=== PATIENT | female | born 1990 | race Caucasian/White ===

== ENCOUNTER 2020-04-12 08:41 | Emergency (ER) | payer BC, SELFPAY ==
--- NOTE | 2020-04-12 08:42 | ED.GENADUL_ITS ---
Discharge Plan Disposition Patient Disposition: HOME Condition: Good Discharge Details Chief Complaint: Orthopedic Clinical Impression: Finger fracture, left Primary Care Provider: Isela Moon ED Provider: Dilcia Escobedo Home Meds and New Rx's Prescriptions: Continued Bcp RF: 0 Discharge Instructions Instructions: Finger Fracture (ED) Additional Instructions: Encourage rest, ice, elevation. Tylenol and ibuprofen as needed for discomfort. Please continue with splint until evaluated by orthopedics. Avoid moving finger. Please call orthopedics Tuesday morning, number listed below to schedule follow- up appointment. If you develop any new or worsening symptoms please seek care urgently once again. Referrals: Tristan Jo MD [ [facility] STAFF PHYSICIAN] - Discharge Data Discharge Date/Time-TO BE ENTERED AT DEPARTURE: 04/12/20 10:49 Medical Decision Making Patient is a pleasant [id number] 29-year-old female presenting today with chief complaint of injury to left ring finger. She reports a prior to arrival she had been trying to walk her dog on a leash when the dog took off and the rings section of the leash caught on her afflicted finger. States she does have some tingling in the finger. She denies other injury the time of the incident. Had notable deformity to the digit. On exam, patient appears uncomfortable. She has an internally rotated and medially deviated left ring finger. Capillary refill is intact as is two-point discrimination. Patient is unable to move the digit. Exam is most concerning for fracture over the middle phalanx. Plan for x-ray. I did discuss digital block with the patient and she declines. Would rather to stick with oral regimen will give Tylenol and ibuprofen to help with discomfort. Patient reports she is on oral contraceptive and has not been sexually active in quite some time. X-ray reviewed by myself. Concerning for a spiral displaced fracture of the left middle phalanx. XR reviewed by radiologist: FINDINGS: Bones/joints: Displaced spiral oblique fracture in the middle phalanx of the ring finger. Soft tissues: Soft tissue swelling of the finger IMPRESSION: Displaced spiral oblique fracture in the middle phalanx of the ring finger. Consulted with Dr. Jo. He will look at the xray and call back. Dr. Jo reviewed the xray . Advised attempted reduction with fede taping and splint. He advised f/u this week with ortho. I discussed with/benefits as well as expected procedural steps of digital block followed by reduction. Patient is very anxious and is requesting an anxiolytic prior to procedure. We will give p.o. Ativan and reported digital block followed by reduction as discussed. Patient voiced understanding and wishes to proceed. Please see procedure note. She tolerated this well. Digital block sufficiently anesthetized the digit digit. Rotational deformity was corrected. I taped the middle digit and repeat imaging obtained Reviewed the images and the rotation does appear improved at the digits and lateral length. Prior to putting the patient in the foam metal splint on top of the fede taping, I did attempt upon this at length benefit further and then reinforced this with the splinting. X-ray reviewed by radiologist: FINDINGS: Bones/joints: Improved alignment of the spiral fracture in the middle phalanx of the ring finger. Soft tissues: Soft tissue swelling of the finger IMPRESSION: Improved alignment of the spiral fracture in the middle phalanx of the ring finger. Encourage rest, ice, elevation. We discussed care of the fracture at length. She will remain in the splint evaluated by orthopedics. She will call orthopedics on Tuesday to schedule follow-up appointment. She will return with new or worsening symptoms. Will use Tylenol and/or ibuprofen as needed for discomfort. All of her questions and concerns were addressed and she is in a greement this plan. HPI General Mode of arrival: ambulatory . Date/Time Provider Initiated Documentation: 04/12/20 08:42 . Limitations to Documentation: no limitations . Information obtained by: patient and RN notes reviewed . History of Present Illness 29 year old F presents to the emergency department with the chief complaint of left ring finger pain, described as severe, with intensity rated at 8. Quality is described as sharp, and is localized to the left and upper extremity. Patient reports no radiation. Patient started experiencing this minute(s) and it has been constant. Immobilization improves symptom(s), Movement worsens symptoms . Patient notes no other symptoms.. Patient did receive the following treatments prior to arrival, none Related Data Home Medications Medication Instructions Recorded Confirmed Bcp 04/12/20 Allergies Allergy/AdvReac Type Severity Reaction Status Date / Time No Known Allergies Allergy Unverified 04/12/20 08:45 Review of Systems Constitutional Constitutional: Reports as per HPI, Denies chills, Denies fever(s), Denies headache(s) and Denies weakness ENT Ears, Nose, Mouth, and Throat: Denies headache(s) Cardiovascular Cardiovascular: Reports as per HPI Respiratory Respiratory: Reports as per HPI and Denies cough Musculoskeletal Musculoskeletal: Reports as per HPI and Reports tingling Integumentary/Breasts Skin/Breast: Reports as per HPI, Denies rash and Denies wounds Neurologic Neurologic: Reports as per HPI, Denies headache(s), Reports tingling, Denies paresthesias and Denies weakness [facility] Social History Smoking/Tobacco Use Status: Never Alcohol Intake: current Alcohol Intake frequency: 0-2 drinks per day Drug use: Never Substance use type: does not use Do you feel safe at home: Yes Do you feel safe in your relationship?: Yes Exam Const General: cooperative, healthy appearing, comfortable, no acute distress, well developed and well groomed Nutritional Appearance: average body habitus and well nourished Orientation: alert and awake Resp Effort & Inspection: normal respiratory effort, able to speak in complete sentences and no respiratory distress Cardio Rate: regular rate Rhythm: regular rhythm Skin General skin exam: ecchymosis Neuro General: patient alert and patient awake Cognition: normal cognition Speech: speech normal Gait: normal gait Motor: muscle tone normal throughout Sensory Exam: normal double simultaneous stimulation Extrem Left upper extremity: normal capillary refill, no joint enlargement and hand Details: abnormal to inspection Details: a deformity Location: of the 4th digit (internally rotated and medially deviated ), normal capillary refill, neuromotor exam normal, neurosensory exam normal (2 point intact distal to affected area) Details: radial nerve sensory function normal and ulnar nerve sensory function normal, tendon exam abnormal (unable to evaluate around DIP of 4th digit secondary to deformity), tenderness Location: of the 4th digit Location: at the middle phalanx and at the DIP joint, vascular exam Details: radial pulse present and normal capillary refill, swelling Location: of the 4th digit Location: at the middle phalanx and at the DIP joint and ecchymosis Location: of the 4th digit Location: at the middle phalanx; ROM of fingers abnormal and no crepitus; abnormal to inspection (deformity of left ring finger) and ROM limited Psych Appearance: grossly normal and well kempt Mental Status: mental status grossly normal Speech and Movement: speech and movement normal
[2020-04-12 08:46] VITALS: BP 147/75; PULSE 84; RESP 16; TEMP 36.4; O2SAT 100
--- NOTE | 2020-04-12 09:00 | DI.RAD_ITS ---
EXAM: XR FINGER LT RING CLINICAL HISTORY: deformity, caught by dog. TECHNIQUE: 2D digital imaging was performed. COMPARISON: None FINDINGS: There is a fracture of the mid to distal portion of the middle phalanx of the ring finger. There is displacement of the distal fractured portion radially as well as question of extension to the articul ar surface. No additional fractures are seen. No dislocation. IMPRESSION: Fracture of the middle phalanx. DATA REPOSITORY: RADIATION DOSE DELIVERED:
[2020-04-12] MEDS: Acetaminophen 500 MG TAB 1000 MG PO (09:12)
[2020-04-12] MEDS: Ibuprofen 600 MG TAB PO (09:13)
--- NOTE | 2020-04-12 09:21 | DI.VRAD_ITS ---
PROCEDURE INFORMATION: Exam: XR Left Finger(s) Exam date and time: 04/12/2020 9:09 AM Age: 29 years old Clinical indication: Other: Deformity, caught dog leash TECHNIQUE: Imaging protocol: XR Left fingers. Views: Minimum 2 views. COMPARISON: No relevant prior studies available. FINDINGS: Bones/joints: Displaced spiral oblique fracture in the middle phalanx of the ring finger. Soft tissues: Soft tissue swelling of the finger IMPRESSION: Displaced spiral oblique fracture in the middle phalanx of the ring finger. Dictated and Authenticated by: Stone Bolaños MD. Ordering:ISABELLE Ha MD
[2020-04-12] MEDS: LORazepam 1 MG TAB PO (09:52)
--- NOTE | 2020-04-12 10:15 | DI.RAD_ITS ---
EXAM: XR FINGER LT RING INDICATION: post reduction. COMPARISON: CR,XR XR FINGER LT RING from 04/12/2020 TECHNIQUE: 2D digital imaging was performed. FINDINGS: There is overlap of the 2nd and 3rd fingers on the lateral view. There the alignment of the fractur e of the middle phalanx is slightly improved when compared with pre reduction images. DATA REPOSITORY: RADIATION DOSE DELIVERED:
--- NOTE | 2020-04-12 10:37 | DI.VRAD_ITS ---
PROCEDURE INFORMATION: Exam: XR Left Finger(s) Exam date and time: 04/12/2020 10:29 AM Age: 29 years old Clinical indication: Other: Post reduction TECHNIQUE: Imaging protocol: XR Left fingers. Views: Minimum 2 views. COMPARISON: CR XR FINGER LT RING 04/12/2020 9:09 AM FINDINGS: Bones/joints: Improved alignment of the spiral fracture in the middle phalanx of the ring finger. Soft tissues: Soft tissue swelling of the finger IMPRESSION: Improved alignment of the spiral fracture in the middle phalanx of the ring finger. Dictated and Authenticated by: Stone Bolaños MD. Ordering:ISABELLE Ha MD
== END 2020-04-12 10:49 | disposition home or self-care (01) ==
PROVIDERS: Emergency Provider Physician Assistant; PCP Nurse Practitioner Adult Health
DX: S62.625A Displaced fracture of middle phalanx of left ring finger, initial encounter for closed fracture (principal); X50.9XXA Other and unspecified overexertion or strenuous movements or postures, initial encounter; Y93.K1 Activity, walking an animal
CPT/HCPCS: 26720; 73140

== ENCOUNTER 2020-04-16 15:12 | Outpatient (CLI) | payer BC, SELFPAY ==
--- NOTE | 2020-04-16 15:00 | DI.RAD_ITS ---
EXAM: XR FINGER LT RING CLINICAL HISTORY: F/U FRACTURE. TECHNIQUE: 2D digital imaging was performed. COMPARISON: April 19 FINDINGS: There has been no change in the alignment of the fracture of the middle phalanx.. DATA REPOSITORY: RADIATION DOSE DELIVERED:
== END 2020-04-16 15:32 ==
PROVIDERS: PCP Student in an Organized Health Care Education/Training Program; Referring Provider Student in an Organized Health Care Education/Training Program; Visit Provider Student in an Organized Health Care Education/Training Program
DX: S62.625D Displaced fracture of middle phalanx of left ring finger, subsequent encounter for fracture with routine healing (principal)
CPT/HCPCS: 73140

== ENCOUNTER 2020-04-24 06:17 | Day surgery (SDC) | payer BC, SELFPAY ==
[2020-04-24 06:37] VITALS: BP 149/98; PULSE 88; RESP 16; TEMP 36.6; O2SAT 99
--- NOTE | 2020-04-24 06:45 | DI.RAD_ITS ---
EXAM: XR HAND LT LIMITED CLINICAL HISTORY: Ring finger perc pinning TECHNIQUE: COMPARISON: No exams were available for comparison FINDINGS: C-arm fluoroscopy was utilized by Dr. Kc during reported ORIF of fracture of the middle phalanx of the ring finger. Hard copy shows pin fixation in place with reduction the fracture fragments. Fluoro time, 190 seconds. IMPRESSION:
[2020-04-24] MEDS: diazePAM 5 MG TAB PO (07:07)
--- NOTE | 2020-04-24 07:11 | ROE_ITS ---
Date of service: 04/24/20 Time of Service: 09:26 Operative Note Operative Note DATE OF PROCEDURE: 04/24/20 PRE-OP DIAGNOSIS: Left ring finger displaced fracture middle phalanx POST-OP DIAGNOSIS: same PROCEDURE: Left ring finger middle phalanx closed reduction percutaneous pinning, CPT # 20[address] SURGEON: Tristan Jo TAX APPRAISER: Meghan Bull ANESTHESIA: local ESTIMATED BLOOD LOSS: 0 TOURNIQUET TIME: 0 COMPLICATIONS: None Patient was transported to: PACU Patient's condition: stable Implants: 2x 0.035 (0.9mm) K-wires Indications: Please see complete medical record for details. Procedure Description: In the operating room, local anesthesia was induced under sterile technique using 9:1 1% lidocaine with epinephrine and sodium bicarbonate as a digital finger block. The patient was positioned supine on the operating room table. All bony prominences were well-padded. Preoperative antibiotics were omitted for low risk hand surgery. The left hand was prepped and draped in the usual sterile fashion. The correct patient, procedure, and side of the procedure were all verified prior to starting the procedure. C arm fluoroscopy was used to confirm displaced, shortened, and rotated left ring finger middle phalanx fracture. A gentle osteoclasis was performed followed by manipulation and closed reduction. C-arm fluoroscopy AP and lateral images under magnification confirmed appropriate gnosticism of fracture angulation in length. The nail plate was now derotated and appropriate compared with the adjacent ones. I began by targeting the radial distal bone of the middle phalanx fragment corner with a goal of placing two 0.035 inch (0.9 mm) K wires from the percutaneous fashion here spreading proximally with one longer and one more transverse across the fracture site. The appropriate start point was localized under fluoroscopic guidance and the K wire advanced across the fracture site however it did not engage proximal bone. It was redirected volarly and also failed to engage proximal bone. C-arm fluoroscopy was brought in and under lateral view this K wire was redirected again centrally toward the proximal phalanx canal however it stubbornly would not engage the bone and kept exiting this long oblique fracture site. Again, appropriate length and angular fracture reduction was confirmed on AP, lateral and oblique fluoroscopy. New K wire was used and placed into the same entry hole as there was only a small a mount of bone distally to work with. Despite my best attempts at redirection this K wire also failed to engage proximal bone. The decided to change my approach percutaneous K wire fixation of this fracture site. Now from the ulnar proximal bone of the middle phalanx corner K wire was directed up the center of the middle phalanx and felt to engage the far cortex. This was confirmed on AP, lateral, and oblique fluoroscopy. The wire was brought back set only the tip was in the far cortex. A second wire was then placed in the more transverse percutaneous fashion from ulnarly to radially across the fracture site and the wire was palpated as advanced to engage definitively the far cortex. This wire was then appropriately brought backslash tip was engaging the far cortex. Appropriate fracture reduction and K wire placement was confirmed in AP, lateral, and oblique fluoroscopy. The patient was awake and asked to inspect her finger and felt it was cosmetically reduced without any rotational or angular abnormality. The patient flexed her fingers most of the way to her palm and demonstrated normal cascade. I was still considering adding a third K wire or reattempting the initially desired long K wire from the distal radial corner cross the fracture site. I decided to test the fracture stability under fluoroscopic guidance and attempted to deviate the fracture into its previous deformity radially and with flexion. There was absolutely no motion at the fracture site the stress fluoroscopic images were saved. I decided to omit any further K wires. The wires were cut appropriately short and covered and secured with a safety ball caps. Xeroform was applied over the pin sites. An AlumaFoam splint was placed radially and secured with tape to the ring finger. Finger tube gauze was placed over the digit. The patient was transferred to the recovery room in a stable condition.
[2020-04-24] MEDS: Sodium Bicarbonate 50 MEQ/50 ML VIAL (08:58)
--- NOTE | 2020-04-24 09:21 | PDOC.DSDIS_ITS ---
Discharge Plan Disposition Patient Disposition: HOME Condition: Stable Discharge Details Reason For Visit: Left ring finger surgery Attending Provider: Tristan Jo Primary Care Provider: Isela Moon Home Meds and New Rx's Prescriptions: New naproxen 250 mg tablet 250 - 500 mg PO BID PRN (Reason: Moderate pain or swelling) Qty: 20 RF: 0 oxycodone 5 mg tablet 5 mg PO Q4H PRN (Reason: moderate to severe pain) Qty: 5 RF: 0 Continued Bcp RF: 0 Discharge Instructions Additional Instructions: Surgery: Left ring finger closed reduction percutaneous pinning Activity: Non-weightbearing in nonweightbearing in finger splint at all times Prescriptions: Naproxen 250 mg take 1-2 every 12 hours with a meal as needed for moderate pain Oxycodone 5 mg take 1 every 4-6 hours as needed for severe pain You may use [id number] Tylenol (acetaminophen) as needed for mild pain. These pain medications may be taken all at once or in different combinations as needed. Also, recommend Colace (docusate) as a stool softener as surgery and pain medicine cause constipation. Dressings: Leave dressing in place for 2-3 days. May then remove gauze and yellow petroleum dressing and leave open to air or cover with finger tube gauze. Please keep clean and dry at all times. May re-tape finger splint as needed. Follow-up: 10-[address] Jo Please call the office during business hours with any questions or concerns. Let us know right away if you develop any redness, drainage, fevers, chest pain, or trouble breathing. Do not drink alcohol or drive for at least 24 hours after anesthesia. Referrals: Tristan Jo MD [ [facility] STAFF PHYSICIAN] - Discharge Orders Discharge Orders: Discharge Order (Routine); Ordered 04/24/20 Ordered By: Tristan Jo DS: Diagnosis Discharge Diagnosis (1) Fracture of middle phalanx of finger of left hand: Status: Acute
== END 2020-04-24 09:49 | disposition home or self-care (01) ==
PROVIDERS: PCP Nurse Practitioner Adult Health; Visit Provider Student in an Organized Health Care Education/Training Program
PROC: (CPT 26727; principal; 2020-04-24 07:30)
DX: S62.629A Displaced fracture of middle phalanx of unspecified finger, initial encounter for closed fracture (principal); X50.0XXA Overexertion from strenuous movement or load, initial encounter
CPT/HCPCS: 26727; 73120

== ENCOUNTER 2020-05-20 11:03 | Outpatient (CLI) | payer BC, SELFPAY ==
--- NOTE | 2020-05-20 10:45 | DI.RAD_ITS ---
EXAM: XR FINGER LT RING EXAM DATE/TIME: CLINICAL HISTORY: fu fracture. TECHNIQUE: 2D digital imaging was performed. COMPARISON: None. FINDINGS: BONES: There has been no change in alignment of the fracture involving the middle phalanx of the left ring finger. Percutaneous pins are again seen transfixing the fractures. The fracture line is are still well visualized.. No bony destructive lesion is seen. No new fracture or dislocation is identi fied. JOINTS: No dislocation is present. SOFT TISSUE: Normal. IMPRESSION: Stable fracture of the middle phalanx of the left ring finger. DATA REPOSITORY: RADIATION DOSE DELIVERED:
== END 2020-05-20 11:23 ==
PROVIDERS: PCP Nurse Practitioner Adult Health; Referring Provider Nurse Practitioner Adult Health; Visit Provider Student in an Organized Health Care Education/Training Program
DX: S62.629D Displaced fracture of middle phalanx of unspecified finger, subsequent encounter for fracture with routine healing (principal); X58.XXXD Exposure to other specified factors, subsequent encounter
CPT/HCPCS: 73140

== ENCOUNTER 2020-06-03 12:05 | Outpatient (CLI) | payer BC, SELFPAY ==
--- NOTE | 2020-06-03 11:45 | DI.RAD_ITS ---
EXAM: XR FINGER LT RING CLINICAL HISTORY: fu finger left hand TECHNIQUE: COMPARISON: CR XR FINGER LT RING from 05/20/2020 FINDINGS: Two views were obtained. Previously described fixation pins transfixing middle phalangeal fracture a gain noted, no change in alignment comparison with previous examination of May 20. IMPRESSION:
== END 2020-06-03 12:25 ==
PROVIDERS: PCP Nurse Practitioner Adult Health; Referring Provider Nurse Practitioner Adult Health; Visit Provider Student in an Organized Health Care Education/Training Program
DX: S62.625D Displaced fracture of middle phalanx of left ring finger, subsequent encounter for fracture with routine healing (principal)
CPT/HCPCS: 73140

== ENCOUNTER 2020-07-01 11:37 | Outpatient (CLI) | payer BC, SELFPAY ==
--- NOTE | 2020-07-01 11:00 | DI.RAD_ITS ---
EXAM: XR FINGER LT RING EXAM DATE/TIME: CLINICAL HISTORY: surgery f/u. TECHNIQUE: 2D digital imaging was performed. COMPARISON: Prior examination on 06/03/2020 FINDINGS: BONES: There is continued healing of the fracture of the middle phalanx of the left ring finger. The percutaneous pins have been removed. No new fracture or dislocation is identified. No bony destruc tive lesion is seen. JOINTS: No dislocation is present. SOFT TISSUE: Normal. IMPRESSION: DATA REPOSITORY: RADIATION DOSE DELIVERED:
== END 2020-07-01 11:57 ==
PROVIDERS: PCP Nurse Practitioner Adult Health; Referring Provider Nurse Practitioner Adult Health; Visit Provider Student in an Organized Health Care Education/Training Program
DX: S62.625A Displaced fracture of middle phalanx of left ring finger, initial encounter for closed fracture (principal)
CPT/HCPCS: 73140